=== PATIENT | female | born 1985 | race Two or more races ===

== ENCOUNTER 2019-09-27 15:31 | Emergency (ER) | payer MEDICAID ==
[~2019-09-27] VITALS: Ht 172.7 cm; Wt 81.6 kg
[2019-09-27 15:38] VITALS: BP 103/62
== END 2019-09-28 00:42 | disposition home or self-care (01) ==
LOC: ER 15:31
DX: R59.9 Enlarged lymph nodes, unspecified (principal); B34.9 Viral infection, unspecified; H92.09 Otalgia, unspecified ear